=== PATIENT | male | born 1975 | race Two or more races ===

== ENCOUNTER 2019-06-15 00:52 | Emergency (ER) | payer OTHER ==
[~2019-06-15] VITALS: Ht 152.4 cm; Wt 61.2 kg
[2019-06-15 01:30] VITALS: BP 130/80
--- NOTE | 2019-06-15 01:30 | NUR ---
ED Nurse Note: PT walked in to ED for C/O pain to left toes after a table fell on it on 06/14/19.
--- NOTE | 2019-06-15 04:10 | NUR ---
ED Nurse Note: X RAY DONE AT BEDSIDE
[2019-06-15] MEDS ORDERED: IBUPROFEN600 MG ORAL (04:20)
--- NOTE | 2019-06-15 04:22 | Emergency Room Report ---
History of Present Illness General Chief Complaint: Pain Source: Patient Present Illness HPI 43-year-old male with table falling on left foot at work. Denies any other injuries, patient reports pain to lateral left foot and left fifth toe. Injury occurred 4 hours prior to arrival. no open wounds or bleeding. Allergies: Coded Allergies: No Known Allergies (Unverified , 06/15/19) Nursing Documentation-[facility] Past Medical History: No Stated History Review of Systems Constitutional: Denies: chills, fever Respiratory: Denies: cough, shortness of breath Cardiovascular: Denies: chest pain, palpitations Gastrointestinal: Denies: diarrhea, vomiting Genitourinary: Denies: hematuria, pain Musculoskeletal: Denies: joint swelling Skin: Denies: rash, lesions Neurological: Denies: headache, dizziness Physical Exam Vital Signs Date Time Temp Pulse Resp B/P (MAP) Pulse Ox O2 Delivery O2 Flow Rate FiO2 06/15/19 00:57 98.2 78 17 126/79 (95) 98 Room Air Sp02 EP Interpretation: reviewed General Appearance: well appearing, no apparent distress, non-toxic Head: normocephalic, atraumatic Eyes: bilateral eye normal inspection ENT: hearing grossly normal, EOM grossly intact, moist mucus membranes Neck: supple Respiratory: lungs clear, normal breath sounds, no respiratory distress, speaking full sentences Cardiovascular #1: regular rate, rhythm, normal capillary refill Cardiovascular #2: 2+ radial (R), 2+ radial (L) Gastrointestinal: soft, non-distended Rectal: deferred Musculoskeletal: moves extm spontaneously, no lower extremity edema, tender - Tenderness to the distal fifth toe, swelling - Fifth toe Neurologic: grossly normal Psychiatric: mood/affect normal Skin: warm/dry, normal turgor Medical Decision Making ER Course Status post table falling on left foot reported pain to fifth toe. Denies any other injuries We will perform x-rays and reevaluate Other X-Ray Diagnostic Results Other X-Ray Diagnostic Results : X-Ray ordered: X-ray left foot and left toe # of Views/Limited Vs Complete: 3 View Indication: Pain Interpretation: other - Fracture of fifth middle phalanges Last Vital Signs Date Time Temp Pulse Resp B/P (MAP) Pulse Ox O2 Delivery O2 Flow Rate FiO2 06/15/19 01:30 98.5 79 17 130/80 98 Room Air Disposition: DISC/XFER TO A [facility] Condition: Stable Scripts Ibuprofen* (MOTRIN*) 600 Mg Tablet 600 MG ORAL Q6H PRN for For Pain, #20 TAB 0 Refills Prov: Avi Vargas M.D. 06/15/19 Referrals: NOT CHOSEN [facility]/,REFERRING (PCP) [facility] Patient Instructions: Toe Fracture Additional Instructions: Follow-up in orthopedist in 2 to 3 days for reevaluation keep toes in rita tape position and in hard shoe Avi Vargas M.D. Jun 15, 2019 04:22
--- NOTE | 2019-06-15 04:28 | NUR ---
ER DISCHARGE NOTE: Patient is cleared to be discharged per ERMD, pt is aox4, on room air, with stable vital signs. pt was given dc and prescription instructions, pt was able to verbalize understanding, pt id band removed without complications. pt is able to ambulate with steady gait. pt took all belongings.
[2019-06-15 04:29] VITALS: BP 129/72
--- NOTE | 2019-06-16 08:34 | Diagnostic Imaging Report ---
Indication: Pain in left foot after tabletop fell on it Technique: 2 views of the left foot Comparison: none Findings: Exam is limited due to lack of an oblique view. There is a fracture of the fifth proximal phalanx. This is displaced dorsally by about one half bone width. This is only apparent on the lateral view. No other acute fractures. No dislocations. There is hammertoe deformities second through fifth digits. Impression: Positive for fifth proximal phalangeal fracture
--- NOTE | 2019-06-16 08:37 | Diagnostic Imaging Report ---
Indication: Pain in left toes after hit by falling tabletop Technique: 3 views of the left toes Comparison: none Findings: There is a posteriorly and laterally angulated fracture of the neck of the fifth proximal phalanx. No other acute fractures. No dislocations. The joint spaces are preserved Impression: Positive for fifth proximal phalangeal fracture
== END 2019-06-15 04:28 | disposition home or self-care (01) ==
LOC: EMR 01:59
DX: M25.572 Pain in left ankle and joints of left foot (principal); S92.512A Displaced fracture of proximal phalanx of left lesser toe(s), initial encounter for closed fracture; W20.8XXA Other cause of strike by thrown, projected or falling object, initial encounter; Y92.9 Unspecified place or not applicable
CPT/HCPCS: 99284